=== PATIENT | female | born 1995 | race Caucasian/White ===

== ENCOUNTER 2024-09-06 20:17 | Emergency (ER) | payer OTHER, SELFPAY ==
[2024-09-06 20:18] VITALS: BP 138/95
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
[2024-09-07 00:40] VITALS: BP 115/79
== END 2024-09-07 00:41 | disposition home or self-care (01) ==
LOC: EMR 20:17
PROVIDERS: EMERGENCY PHYSICIAN Emergency Medicine; FAMILY PHYSICIAN Family Medicine
DX: S00.81XA Abrasion of other part of head, initial encounter (principal); M79.641 Pain in right hand; M25.511 Pain in right shoulder; Y08.89XA Assault by other specified means, initial encounter; Y99.0 Civilian activity done for income or pay
CPT/HCPCS: 99284; 70160; 73030; 73130